=== PATIENT | male | born 1985 | race Caucasian/White ===

== ENCOUNTER 2023-01-09 09:59 | Emergency (ER) | payer BC | END 2023-01-09 10:09 | disposition left against medical advice (07) | LOC: MW.ED 09:59 | DX: T40.2X1A Poisoning by other opioids, accidental (unintentional), initial encounter (principal); I46.9 Cardiac arrest, cause unspecified | CPT/HCPCS: 99284 ==

== ENCOUNTER 2023-06-20 18:02 | Emergency (ER) | payer OTHER, BC, MEDICAID | END 2023-06-20 19:40 | disposition home or self-care (01) | LOC: MW.ED 18:02 | DX: S42.001A Fracture of unspecified part of right clavicle, initial encounter for closed fracture (principal); S43.101A Unspecified dislocation of right acromioclavicular joint, initial encounter; V19.9XXA Pedal cyclist (driver) (passenger) injured in unspecified traffic accident, initial encounter | CPT/HCPCS: 73030-26-RT; 73030-RT; 99284 ==